=== PATIENT | male | born 1985 | race Caucasian/White ===

== ENCOUNTER 2022-12-10 13:03 | Outpatient (CLI) | payer OTHER ==
[2022-12-10 23:06] LABS: CHLAMYDIA TRACHOMATIS DNA NEGATIVE (NEGATIVE); NEISSERIA GONORRHOEAE DNA NEGATIVE (NEGATIVE); TRICHOMONAS VAGINALIS DNA NEGATIVE (NEGATIVE)
[2022-12-12 06:11] LABS: HIV SCREEN 4TH GENERATION Non Reactive (Non Reactive)
[2022-12-12 08:10] LABS: HCV AB Non Reactive (Non Reactive)
[2022-12-12 09:09] LABS: RPR Non Reactive (Non Reactive)
== END 2022-12-10 13:04 | disposition home or self-care (01) ==
LOC: LAB.S 13:03
PROVIDERS: ATTEND Physician Assistant Medical
DX: Z11.3 Encounter for screening for infections with a predominantly sexual mode of transmission (principal)
CPT/HCPCS: 36415; 86592; 86803; 87389; 87491; 87591; 87661

== ENCOUNTER 2023-03-10 11:12 | Emergency (ER) | payer OTHER ==
[2023-03-10 11:36] LABS: RAPID STREP SCREEN POSITIVE (Negative)
--- OUTSIDE RECORDS SUMMARY | 2023-03-10 12:11 | EXTERNAL MEDICAL SUMMARY RPT | Continuity of Care Document ---
Author Name Unknown Address [address] [place] [address] Phone Organization [facility] Address [address] [place] [address] Phone Care Team Providers [facility] Receptionist Name Role Phone Unavailable Unavailable Unavailable Farhat [place], Petar Unavailable Unavailable Gerry [place], Shelly Unavailable Unavailable Karoline Rutherford, Tomasa Unavailable Unavailable Medications date description facility 2022-12-10 00:00 [facility]erol sulfate [facility] 2022-12-11 00:00 albuterol sulfate [facility] 2022-12-12 00:00 albuterol sulfate [facility] [place] 2022-12-12 00:00 albuterol sulfate [facility] [place] 2022-12-12 00:00 albuterol sulfate [facility] [place] 2022-12-10 00:00 albuterol sulfate [facility] [place] 2022-12-11 00:00 albuterol sulfate [facility] [place] 2022-12-12 00:00 albuterol sulfate [facility] [place] 2022-12-12 00:00 albuterol sulfate [facility] [place] 2022-12-12 00:00 albuterol sulfate [facility] [place] 2022-12-10 00:00 albuterol sulfate [facility] [place] 2022-12-11 00:00 albuterol sulfate [facility] [place] 2022-12-12 00:00 albuterol sulfate [facility] [place] 2022-12-12 00:00 albuterol sulfate [facility] [place] 2022-12-12 00:00 albuterol sulfate [facility] [place] 2022-12-10 00:00 albuterol sulfate [facility] [place] 2022-12-11 00:00 albuterol sulfate [facility] [place] 2022-12-12 00:00 albuterol sulfate [facility] [place] 2022-12-12 00:00 albuterol sulfate [facility] [place] 2022-12-12 00:00 albuterol sulfate [facility] Results/Labs test date facility value unit notes Social History date description facility
[2023-03-10 12:22] LABS: B. PARAPERTUSSIS- RESP PCR PAN NOT DETECTED; B. PERTUSSIS- RESP PCR PANEL NOT DETECTED; C. PNEUMONIAE- RESP PCR PANEL NOT DETECTED; CORONAVIRUS 229E-RESP PCR NOT DETECTED; CORONAVIRUS HKU1-RESP PCR NOT DETECTED; CORONAVIRUS NL63-RESP PCR NOT DETECTED; CORONAVIRUS OC43-RESP PCR NOT DETECTED; HUMAN METAPNEUMOVIRUS NOT DETECTED; INFLUENZA A- RESP PCR PANEL NOT DETECTED; INFLUENZA B - RESP PCR PANEL NOT DETECTED; M. PNEUMONIAE- RESP PCR PANEL NOT DETECTED; PARAINFLUENZA VIRUS 1 NOT DETECTED; PARAINFLUENZA VIRUS 2 NOT DETECTED; PARAINFLUENZA VIRUS 3 NOT DETECTED; PARAINFLUENZA VIRUS 4 NOT DETECTED; RHINOVIRUS/ENTEROVIRUS NOT DETECTED; RSV- RESP PCR PANEL NOT DETECTED; SARS-CoV-2 -RESP PCR PANEL NOT DETECTED
--- NOTE | 2023-03-10 12:47 | ED Physician Documentation ---
History of Present Illness - Stated complaint Stated Complaint: SORE THROAT - Chief complaint Chief Complaint: Heent - Additonal information Additional information: 37-year-old male here for 2 days of fever and sore throat. No congestion. No nausea or vomiting. Review of Systems Constitutional: reports: Fever Nose: denies: Congestion Throat: reports: Sore throat. denies: Oral lesions / sores Respiratory: reports: Reviewed and negative GI: reports: Reviewed and negative PD PAST MEDICAL HISTORY - Present Medications Home Medications: Ambulatory Orders Medication Instructions Recorded Confirmed Penicillin V Potassium 500 mg PO BID #20 tablet 03/10/23 - Allergies Allergies/Adverse Reactions: Allergies Allergy/AdvReac Type Severity Reaction Status Date / Time ondansetron [From Zofran] Allergy Anaphylaxis Verified 03/10/23 11:15 PD ED PE NORMAL - General General: Alert and oriented X 3, No acute distress, Well developed/nourished - HEENT HEENT: Atraumatic, Moist mucous membranes. No: Pharynx benign (Quite erythematous posterior oropharynx without exudate. Uvula is midline. No soft palate asymmetry or swelling.) - Neck Neck: No adenopathy (Tender anterior cervical lymphadenopathy bilaterally.) - Cardiac Cardiac: RRR, No murmur - Respiratory Respiratory: Clear bilaterally Results - Vitals Vitals: Vital Signs - 24 hr 03/10/23 11:15 Temperature 37.4 C Heart Rate 83 Respiratory 16 Rate Blood Pressure 116/69 O2 Saturation 98 Oxygen O2 Source Room air - Labs Labs: Laboratory Tests 03/10/23 03/10/23 11:20 11:20 Nasal Adenovirus (PCR) NOT DETECTED Nasal B. parapertussis DNA (PCR) NOT DETECTED Nasal Coronavir 229E PCR NOT DETECTED Nasal Coronavir HKU1 PCR NOT DETECTED Nasal Coronavir NL63 PCR NOT DETECTED Nasal Coronavir OC43 PCR NOT DETECTED Nasal Enterovir/Rhinovir PCR NOT DETECTED Nasal Influenza B PCR NOT DETECTED Nasal Influenza A PCR NOT DETECTED Nasal Parainfluen 1 PCR NOT DETECTED Nasal Parainfluen 2 PCR NOT DETECTED Nasal Parainfluen 3 PCR NOT DETECTED Nasal Parainfluen 4 PCR NOT DETECTED Nasal RSV (PCR) NOT DETECTED Nasal B.pertussis DNA PCR NOT DETECTED Nasal C.pneumoniae (PCR) NOT DETECTED Fernando Human Metapneumo PCR NOT DETECTED Nasal M.pneumoniae (PCR) NOT DETECTED Nasal SARS-CoV-2 (PCR) NOT DETECTED Group A Strep Rapid POSITIVE H PD Medical Decision Making - ED course Complexity details: reviewed results, d/w patient ED course: 37-year-old male here for 2 days of fever and sore throat no cough. Vital signs here within normal limits for age. Respiratory PCR panel is negative. The strep panel is positive. Patient will be started on penicillin. Clinically no evidence of RPA or PIN PUSHER. Recommend Tylenol Motrin for analgesia. The usual emergent return precautions were discussed for worsening symptoms Departure - Departure Disposition: 01 Home, Self Care Clinical Impression: Strep pharyngitis Condition: Stable Instructions: ED Strep Pharyngitis Conf Prescriptions: Penicillin V Potassium 500 mg PO BID #20 tablet Comments: Gray today you have tested positive for strep throat. This is a bacteria that can cause the pain and fevers. Prescription for penicillin has been sent to the [facility] in [place]. You will take it twice daily for the next 10 days. In general I recommend you take ibuprofen 600 mg with food 2-3 times a day or alternate with 500 mg of Tylenol also 2-3 times a day. Gargle with warm salt water. Avoid kissing or sharing food utensils with others until you complete your antibiotics. I would expect you to be feeling markedly better after the first 2 or 3 doses. Return to the ER if you develop any inability to swallow or tolerate your oral secretions, swallow normally, open your mouth or you have concerns of worsening symptoms in any way
[2023-03-10 13:01] VITALS: BP 128/74; O2SAT 97
== END 2023-03-10 12:55 | disposition home or self-care (01) ==
LOC: ED 11:12
DX: J02.0 Streptococcal pharyngitis (principal); Z20.822 Contact with and (suspected) exposure to COVID-19
CPT/HCPCS: 87430; 87633; 99283

== ENCOUNTER 2023-07-29 09:09 | Emergency (ER) | payer OTHER ==
[2023-07-29 09:20] VITALS: BP 126/74; O2SAT 97
[2023-07-29 09:36] LABS: RAPID STREP SCREEN Negative (Negative)
--- NOTE | 2023-07-29 09:48 | ED Physician Documentation ---
PD HPI URI - Stated complaint Stated Complaint: SORE THROAT,FATIGUE - Chief complaint Chief Complaint: Heent - History obtained from History obtained from: Patient - History of Present Illness Timing - onset: How many days ago (few) Timing duration: Days (few) Timing details: Abrupt onset, Still present Associated symptoms: Fever, Chills, Sore throat. No: Nasal congestion, Rhinorrhea, Dry cough Contributing factors: No: Sick contact Similar symptoms before: Diagnosis (similar to strep throat in February. Well between times.) Review of Systems Constitutional: reports: Fever, Chills, Fatigue Nose: denies: Rhinorrhea / runny nose, Congestion Throat: reports: Sore throat, Swollen tonsils Respiratory: denies: Dyspnea, Cough GI: denies: Nausea, Vomiting, Diarrhea Skin: denies: Rash PD PAST MEDICAL HISTORY - Past Medical History Past Medical History: Yes Cardiovascular: None Respiratory: Asthma Neuro: None Endocrine/Autoimmune: None GI: None : None HEENT: None Psych: None Musculoskeletal: None Derm: None - Past Surgical History Past Surgical History: Yes Ortho: Other - Present Medications Home Medications: Ambulatory Orders Medication Instructions Recorded Confirmed cephALEXin [Keflex] 500 mg PO TID #20 cap 07/29/23 dexAMETHasone [Decadron] 4 mg PO DAILY #5 tablet 07/29/23 - Allergies Allergies/Adverse Reactions: Allergies Allergy/AdvReac Type Severity Reaction Status Date / Time ondansetron [From Zofran] Allergy Anaphylaxis Verified 07/29/23 09:13 - Social History Does the pt smoke?: No Smoking Status: Never smoker Does the pt drink ETOH?: Yes Does the pt have substance abuse?: No - Immunizations Immunizations are current?: Yes - POLST Patient has POLST: No PD ED PE NORMAL - Vitals Vital signs reviewed: Yes - General General: Alert and oriented X 3, No acute distress, Well developed/nourished - HEENT HEENT: Ears normal, Moist mucous membranes. No: Pharynx benign (redness with swelling and exudate. No peritonsillar swelling. ) - Neck Neck: Supple, no meningeal sign, Other (anterior adenopathy bilaterally, tender. ) Results - Vitals Vitals: Oxygen O2 Source Room air - Labs Labs: Microbiology 07/29/23 09:20 Group A Strep Throat Culture - Preliminary Throat CULTURE IN PROGRESS. RESULTS TO FOLLOW. Laboratory Tests 07/29/23 07/29/23 09:20 09:20 Nasal Adenovirus (PCR) NOT DETECTED Nasal B. parapertussis DNA (PCR) NOT DETECTED Nasal Coronavir 229E PCR NOT DETECTED Nasal Coronavir HKU1 PCR NOT DETECTED Nasal Coronavir NL63 PCR NOT DETECTED Nasal Coronavir OC43 PCR NOT DETECTED Nasal Enterovir/Rhinovir PCR NOT DETECTED Nasal Influenza B PCR NOT DETECTED Nasal Influenza A PCR NOT DETECTED Nasal Parainfluen 1 PCR NOT DETECTED Nasal Parainfluen 2 PCR DETECTED A Nasal Parainfluen 3 PCR NOT DETECTED Nasal Parainfluen 4 PCR NOT DETECTED Nasal RSV (PCR) NOT DETECTED Nasal B.pertussis DNA PCR NOT DETECTED Nasal C.pneumoniae (PCR) NOT DETECTED Fernando Human Metapneumo PCR NOT DETECTED Nasal M.pneumoniae (PCR) NOT DETECTED Nasal SARS-CoV-2 (PCR) NOT DETECTED Group A Strep Rapid Negative PD Medical Decision Making - ED course Complexity details: reviewed results (rapid test neg. culture pending. 08/27 Cent[facility] so will empirically start on abx. ), considered differential, d/w patient Departure - Departure Disposition: 01 Home, Self Care Clinical Impression: Acute pharyngitis Condition: Stable Record reviewed to determine appropriate education?: Yes Instructions: ED Strep Pharyngitis Poss Prescriptions: dexAMETHasone [Decadron] 4 mg PO DAILY #5 tablet cephALEXin [Keflex] 500 mg PO TID #20 cap Comments: Your rapid strep test is negative. The culture from that will result in a couple of days. However in the meantime the symptoms are suspicious enough for strep throat to treat it as such with antibiotics and anti-inflammatory pending the culture result. The anti-inflammatory would be helpful regardless of viral or bacterial. Stay well-hydrated. Tylenol and/or ibuprofen as needed for pains. We typically call with the culture results in a couple of days. I sent your prescription to [facility] pharmacy. Forms: PCP List Discharge Date/Time: 07/29/23 10:06
[2023-07-29] MEDS: dexAMETHasone 4 MG TABLET PO STA (10:01)
[2023-07-29] MEDS: cephALEXin 250 MG CAPSULE PO STA (10:01)
[2023-07-29] MEDS: ACETAMINOPHEN 325 MG TABLET PO STA (10:01)
[2023-07-29 10:15] LABS: B. PARAPERTUSSIS- RESP PCR PAN NOT DETECTED; B. PERTUSSIS- RESP PCR PANEL NOT DETECTED; C. PNEUMONIAE- RESP PCR PANEL NOT DETECTED; CORONAVIRUS 229E-RESP PCR NOT DETECTED; CORONAVIRUS HKU1-RESP PCR NOT DETECTED; CORONAVIRUS NL63-RESP PCR NOT DETECTED; CORONAVIRUS OC43-RESP PCR NOT DETECTED; HUMAN METAPNEUMOVIRUS NOT DETECTED; INFLUENZA A- RESP PCR PANEL NOT DETECTED; INFLUENZA B - RESP PCR PANEL NOT DETECTED; M. PNEUMONIAE- RESP PCR PANEL NOT DETECTED; PARAINFLUENZA VIRUS 1 NOT DETECTED; PARAINFLUENZA VIRUS 2 DETECTED; PARAINFLUENZA VIRUS 3 NOT DETECTED; PARAINFLUENZA VIRUS 4 NOT DETECTED; RHINOVIRUS/ENTEROVIRUS NOT DETECTED; RSV- RESP PCR PANEL NOT DETECTED; SARS-CoV-2 -RESP PCR PANEL NOT DETECTED
== END 2023-07-29 10:06 | disposition home or self-care (01) ==
LOC: ED 09:09
DX: J02.9 Acute pharyngitis, unspecified (principal); Z11.52 Encounter for screening for COVID-19
CPT/HCPCS: 87070; 87430; 87633; 99283; A9270; J8540

== ENCOUNTER 2023-10-01 17:02 | Emergency (ER) | payer OTHER ==
[2023-10-01 17:27] VITALS: O2SAT 98
[2023-10-01 18:20] LABS: RAPID STREP SCREEN Negative (Negative)
[2023-10-01 18:59] LABS: B. PARAPERTUSSIS- RESP PCR PAN NOT DETECTED; B. PERTUSSIS- RESP PCR PANEL NOT DETECTED; C. PNEUMONIAE- RESP PCR PANEL NOT DETECTED; CORONAVIRUS 229E-RESP PCR NOT DETECTED; CORONAVIRUS HKU1-RESP PCR NOT DETECTED; CORONAVIRUS NL63-RESP PCR NOT DETECTED; CORONAVIRUS OC43-RESP PCR NOT DETECTED; HUMAN METAPNEUMOVIRUS NOT DETECTED; INFLUENZA A- RESP PCR PANEL NOT DETECTED; INFLUENZA B - RESP PCR PANEL NOT DETECTED; M. PNEUMONIAE- RESP PCR PANEL NOT DETECTED; PARAINFLUENZA VIRUS 1 NOT DETECTED; PARAINFLUENZA VIRUS 2 NOT DETECTED; PARAINFLUENZA VIRUS 3 NOT DETECTED; PARAINFLUENZA VIRUS 4 NOT DETECTED; RHINOVIRUS/ENTEROVIRUS DETECTED; RSV- RESP PCR PANEL NOT DETECTED; SARS-CoV-2 -RESP PCR PANEL NOT DETECTED
[2023-10-01] MEDS: AMOXICILLIN 250 MG CAPSULE PO STA (19:19)
[2023-10-01] MEDS: DEXAMETHASONE 10 MG/ML VIAL PO STA (19:20)
--- NOTE | 2023-10-01 19:28 | ED Physician Documentation ---
History of Present Illness - Stated complaint Stated Complaint: COUGHING UP BLOOD - Chief complaint Chief Complaint: Heent - History obtained from History obtained from: Patient, Family - History of Present Illness Timing: How many days ago (3) Pain level max: 7 Pain level now: 5 - Additonal information Additional information: Patient is a 38-year-old male who presents to the emergency department with a sore throat for 2 days. He is leaving for [facility] tomorrow. History of recurrent strep pharyngitis. Worse with eating and drinking, worse with swallowing. Also has nasal congestion and a mild cough. He states that the cough has produced small amounts of bright red blood in the sputum today. Review of Systems Nose: reports: Rhinorrhea / runny nose, Congestion Skin: denies: Rash Musculoskeletal: denies: Neck pain, Back pain Neurologic: denies: Focal weakness, Numbness, Headache PD PAST MEDICAL HISTORY - Past Medical History Cardiovascular: None Respiratory: Asthma Neuro: None Endocrine/Autoimmune: None GI: None : None HEENT: None Psych: None Musculoskeletal: None Derm: None - Past Surgical History Past Surgical History: Yes Ortho: Other - Present Medications Home Medications: Ambulatory Orders Medication Instructions Recorded Confirmed Albuterol Sulfate [Proair 90 mcg IH PRN PRN 10/01/23 10/01/23 Digihaler] Amoxicillin 875 mg PO BID #20 tablet 10/01/23 - Allergies Allergies/Adverse Reactions: Allergies Allergy/AdvReac Type Severity Reaction Status Date / Time ondansetron [From Zofran] Allergy Anaphylaxis Verified 10/01/23 17:19 - Social History Does the pt smoke?: No Smoking Status: Never smoker Does the pt drink ETOH?: Yes Does the pt have substance abuse?: No - Immunizations Immunizations are current?: Yes - POLST Patient has POLST: No PD ED PE NORMAL - Vitals Vital signs reviewed: Yes - General General: Alert and oriented X 3, No acute distress - HEENT HEENT: PERRL, Ears normal, Moist mucous membranes, Other (Posterior oropharynx is erythematous with tonsillar exudates. Normal phonation. No trismus. Uvula midline.) - Neck Neck: Supple, no meningeal sign - Cardiac Cardiac: RRR, Strong equal pulses - Respiratory Respiratory: No respiratory distress, Clear bilaterally, Other ( No stridor or wheezing.) - Abdomen Abdomen: Soft, Non tender, Non distended - Derm Derm: Warm and dry - Extremities Extremities: No edema - Neuro Neuro: Alert and oriented X 3 - Psych Psych: Normal mood, Normal affect Results - Vitals Vitals: Vital Signs - 24 hr 10/01/23 10/01/23 17:19 19:36 Temperature 36.6 C Heart Rate 71 73 Respiratory 16 16 Rate Blood Pressure 129/93 H 129/81 H O2 Saturation 98 98 Oxygen O2 Source Room air - Labs Labs: Laboratory Tests 10/01/23 10/01/23 17:55 17:55 Nasal Adenovirus (PCR) NOT DETECTED Nasal B. parapertussis DNA (PCR) NOT DETECTED Nasal Coronavir 229E PCR NOT DETECTED Nasal Coronavir HKU1 PCR NOT DETECTED Nasal Coronavir NL63 PCR NOT DETECTED Nasal Coronavir OC43 PCR NOT DETECTED Nasal Enterovir/Rhinovir PCR DETECTED A Nasal Influenza B PCR NOT DETECTED Nasal Influenza A PCR NOT DETECTED Nasal Parainfluen 1 PCR NOT DETECTED Nasal Parainfluen 2 PCR NOT DETECTED Nasal Parainfluen 3 PCR NOT DETECTED Nasal Parainfluen 4 PCR NOT DETECTED Nasal RSV (PCR) NOT DETECTED Nasal B.pertussis DNA PCR NOT DETECTED Nasal C.pneumoniae (PCR) NOT DETECTED Fernando Human Metapneumo PCR NOT DETECTED Nasal M.pneumoniae (PCR) NOT DETECTED Nasal SARS-CoV-2 (PCR) NOT DETECTED Group A Strep Rapid Negative - Rads (name of study) cxr Relevant Findings:: Final report received, See rad report PD Medical Decision Making - ED course Complexity details: reviewed results, re-evaluated patient, considered differential, d/w patient ED course: 38-year-old male with what appears to be clinically strep pharyngitis. His rapid strep is negative, the throat culture will not be back for a day or 2 but as he is leaving the country, given his history of recurrent strep pharyngitis, will treat with antibiotics at this time. His chest x-ray is negative. Respiratory PCR positive for rhinovirus. Patient is well-appearing, nontoxic. No hypoxia or respiratory distress. Normal phonation. No trismus no peritonsillar or retropharyngeal abscess. Patient counseled regarding signs and symptoms for which I believe and urgent re-evaluation would be necessary. Patient with good understanding of and agreement to plan and is comfortable going home at this time This document was made in part using voice recognition software. While efforts are made to proofread this document, sound alike and grammatical errors may occur. Departure - Departure Disposition: 01 Home, Self Care Clinical Impression: Rhinovirus Acute pharyngitis Qualifiers: Pharyngitis/tonsillitis etiology: unspecified etiology Qualified Code(s): J02.9 - Acute pharyngitis, unspecified Condition: Good Instructions: ED Strep Pharyngitis Poss, ED Viral Syndrome Follow-Up: your,doctor in 1 week if not better [Other] Prescriptions: Amoxicillin 875 mg PO BID #20 tablet Comments: Your prescription was sent to [facility] in [place]. You were given a dose of dexamethasone tonight which is a steroid which will help with the swelling. You have tested positive for rhinovirus which is a viral infection that will clear on its own. Your exam is concerning for strep pharyngitis, therefore we will treat you with antibiotics as you will be out of the country before the throat culture is back. Please return if you worsen. Please take all antibiotics until gone even if you are feeling better. Forms: PCP List Discharge Date/Time: 10/01/23 19:36
[2023-10-01 19:41] VITALS: BP 129/81
--- NOTE | 2023-10-01 19:44 | XRAY Report ---
PROCEDURE: Chest 2V INDICATIONS: cough TECHNIQUE: 2 views of the chest were acquired. COMPARISON: None. FINDINGS: Surgical changes and devices: None. Lungs and pleura: No pleural effusions or pneumothorax. Lungs are clear. Mediastinum: Mediastinal contours appear normal. Heart size is normal. Bones and chest wall: No suspicious bony lesions. Overlying soft tissues appear unremarkable. IMPRESSION: No acute cardiopulmonary process. No focal airspace disease. Reviewed by: Antwon White MD on 10/01/2023 7:42 PM PDT Approved by: Antwon White MD on 10/01/2023 7:42 PM PDT Station ID: [id number]
== END 2023-10-01 19:36 | disposition home or self-care (01) ==
LOC: ED 17:02
DX: J02.9 Acute pharyngitis, unspecified (principal); B34.8 Other viral infections of unspecified site
CPT/HCPCS: 71046; 87070; 87430; 87633; 99284; A9270